=== PATIENT | female | born 1985 | race Caucasian/White ===

== ENCOUNTER 2019-07-12 11:00 | Outpatient (RCR) | payer OTHER, SELFPAY ==
--- NOTE | 2019-06-25 11:42 | OTOPEVAL ---
Thank you for referring this patient to [facility]. Please review, sign, date and return this plan of care SHAVONNE. I agree with and certify that the following plan of care is medically necessary. Referring Physician Date *OT Outpatient Evaluation Start: 06/25/19 11:30 Freq: Status: Active Protocol: Document 06/25/19 08:56 [facility] [place] (Rec: 06/25/19 11:40 [facility] [place] [id number]) Therapy Assessment Status Assessment Status Assessment Status Re-evaluation Outpatient Past Medical History Neurological History Hx Cerebrovascular Accident (CVA) Yes Cardiovascular History Hx Hypertension Yes Pain History History of Any Previous or Ongoing No Significant History Instance of Pain Pain Assessment Timing of Pain Assessment Timing of Pain Assessment Assessment Self Report Self Report Pain Level 0 Pain Score Pain Score 0: Self Report Upper Extremity Muscle Strength Testing General Upper Extremity Strength Gross Upper Extremity Strength Comments R UE strength: 4-/5 L UE strength: 4+/5 Complex ADL Assessment Grooming/Oral Care Able to Clean Teeth/Dentures with Minimum Assistance X 1 Suitable Items Eating/Feeding Ability to Bring Food to Mouth and Standby Assistance Swallow Eating (Feeding) Comment Patient's reports self feeding with verbal cues only except for difficult textures like pasta. Patient uses a divided plate. Lower Body Dressing Putting On/Removing Pants/Underwear Standby Assistance Including Fasteners Managing Footwear Including Socks, Shoes Independent , Tying Lower Body Dressing Comments Patient's reports that patient is able to don/doff pants, shirt, socks and shoes with verbal cues only. Safety Assessment Patient Safety Factors Affecting Safety Decreased Balance,Decreased Body Awareness OT Procedures OT Minutes Total Minutes Of Individual OT This 0 Session (Minutes) Query Text:The Provision Of OT Services By One Licensed OT (Or Licensed GAN, Under The Appropriate Direction Of A Licensed OT) To One Patient At A Time ( One-On-One Therapy). Total Minutes Of OT This Session (0-180 0 Minutes) Query Text:Total Minutes Must Equal Or Exceed The Sum Of The Minutes Documented Within This Assessment. Occupational Therapy Units Of Care ( 0 Medicare Standards) (1-8 Units) Query Text:Does Not Take Into Account Procedural Based Charges. Occupational Therapy Units Of Care (
--- NOTE | 2019-06-25 17:21 | PTOPEVAL ---
Thank you for referring this patient to [facility]. Please review, sign, date and return this plan of care SHAVONNE. I agree with and certify that the following plan of care is medically necessary. Referring Physician Date *PT Outpatient Evaluation Start: 06/25/19 10:28 Freq: Status: Active Protocol: Document 06/25/19 10:29 [facility] (Rec: 06/25/19 10:50 [facility] [id number]) Therapy Assessment Status Assessment Status Assessment Status Re-evaluation Outpatient Past Medical History Pain History History of Any Previous or Ongoing No Significant History Instance of Pain Pain Assessment Timing of Pain Assessment Timing of Pain Assessment Assessment Self Report Self Report Pain Level 0 Pain Score Pain Score 0: Self Report Lower Extremity Muscle Strength Testing Hip Strength Bilateral Hip Strength Comments pt. demonstrates 5/5 bilateral hip flexion, 4/5 bilateral hip extension, 5/5 knee extension, 5/5 knee flexion and 5/5 ankle dorsiflexion Balance Assessment Tinetti Balance Assessment Sitting Balance Steady, safe Ability to Arise Able, w/o using arms Attempts to Arise Arises on 1st attempt Immediate Standing Balance Steady w/o support Standing Balance Steady, wide stance Nudged Response Staggers, catches self Standing with Eyes Closed Steady Step Pattern Turning 360 Degrees Discontinuous steps Stability Turning 360 Degrees Unsteady, grabs/staggers Sitting Down Unsafe Initiation of Gait Hesitancy, mult. attempts Right Foot Step Length Does not pass stance ft. Right Foot Step Height Completely clears floor Left Foot Step Length Does not pass stance foot Left Foot Step Height Completely clears floor Step Symmetry Step length appears equal Step Continuity Stopping or discontinuity Path Description Marked deviation Trunk Description No sway but posturing Walking Stance Heels together Tinetti Composite Score (Balance + Gait) 15 (/28) Interpretation of Scores High risk for falls(< 19) Comments Pt. uses probing cane with ambulation. Gait Assessment Gait Assessment Weight Bearing Status - Left Full Weight Bearing Status - Right Full Maintains Weight Bearing Status Yes Ambulation Destination In Corridor Additional Ambulation Comments Pt. ambulates with use of a probing cane with continued frequen
--- NOTE | 2019-07-19 10:45 | OTOPEVAL ---
Thank you for referring this patient to [facility]. Please review, sign, date and return this plan of care SHAVONNE. I agree with and certify that the following plan of care is medically necessary. Referring Physician Date Admitting Provider: Attending Provider: demetri goodson Referring Provider: EmilOT Outpatient Evaluation Start: 06/25/19 11:30 Freq: Status: Active Protocol: Document 07/19/19 09:42 [facility] (Rec: 07/19/19 10:43 [facility] [place] [facility] [id number] Therapy Assessment Status Assessment Status Assessment Status Re-evaluation Outpatient Past Medical History Neurological History Hx Cerebrovascular Accident (CVA) Yes Cardiovascular History Hx Cardiac Disorders No Significant History Respiratory History Hx Respiratory Disorders No Significant History Gastrointestinal History Hx Gastrointestinal Disorders No Significant History Genitourinary History Hx Genitourinary Disorders No Significant History Musculoskeletal History Hx Musculoskeletal Disorders No Significant History Hematological History Hx Hematological Disorders No Significant History Endocrine History Hx Endocrine Disorders No Significant History HEENT History Hx HEENT Disorders No Significant History Integumentary History Hx Skin Disorders No Significant History Psychosocial History Hx Psychiatric Disorders No Significant History Pain History History of Any Previous or Ongoing No Significant History Instance of Pain Anesthesia History Hx Anesthesia Reactions No Significant History Pain Assessment Timing of Pain Assessment Timing of Pain Assessment Pre-Treatment Self Report Self Report Pain Level 0 Pain Score Pain Score 0: Self Report Upper Extremity Muscle Strength Testing General Upper Extremity Strength Reason Not Measured WNL/Left,WNL/Right Gross Upper Extremity Strength Comments 4+/5 Hand Toy Assembly Supervisor/Pinch Strength Assessment Hand Dominance Hand Dominance Right Hand Right Toy Assembly Supervisor Strength (lbs) 35 Lateral Pinch Strength (lbs) 7 Left Toy Assembly Supervisor Strength (lbs) 42 Lateral Pinch Strength (lbs) 9 OT Clinical Summary Clinical Summary Protocol: OTEVCODES Clinical Summary Patient is a 34 year old female who continues to receive skilled OT services and is making progress. She tolerates OT with good skill for participation and completion of tasks. Patient demonstrates increased R UE strength, specifically in the shoulder and is progressing in R
--- NOTE | 2019-07-26 08:48 | STOPEVAL ---
Thank you for referring this patient to [facility]. Please review, sign, date and return this plan of care SHAVONEN. I agree with and certify that the following plan of care is medically necessary. Referring Physician Date Admitting Provider: Attending Provider: demetri goodson Referring Provider: PEREZ Outpatient Evaluation Start: 06/25/19 13:47 Freq: Status: Active Protocol: Document 06/25/19 13:47 [facility] (Rec: 06/25/19 14:25 [facility] [id number]) Therapy Assessment Status Assessment Status Assessment Status Re-evaluation Outpatient Past Medical History Neurological History Hx Cerebrovascular Accident (CVA) Yes Cardiovascular History Hx Cardiac Disorders No Significant History Respiratory History Hx Respiratory Disorders No Significant History Gastrointestinal History Hx Gastrointestinal Disorders No Significant History Genitourinary History Hx Genitourinary Disorders No Significant History Musculoskeletal History Hx Musculoskeletal Disorders No Significant History Hematological History Hx Hematological Disorders No Significant History Endocrine History Hx Endocrine Disorders No Significant History HEENT History Hx HEENT Disorders No Significant History Integumentary History Hx Skin Disorders No Significant History Psychosocial History Hx Psychiatric Disorders No Significant History Pain History History of Any Previous or Ongoing No Significant History Instance of Pain Anesthesia History Hx Anesthesia Reactions No Significant History Evaluation Information Problem Diagnosis CVA Onset 02/13/19 Additional Evaluation Detail 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 She was seen for extensive therapy at [facility], [place], and [facility] until immediately prior to our outpatient evaluation on 05/24/19. Prior Level of Function Activity Level (Last 3 Months) Hand Dominance Right Activity of Daily Living Ability Independent Indoor/Home Mobility Independent Community Mobility Independent Stairs Ability Independent Functional Cognition (Planning, Shopping Independent , Taking Medications) Cooking Yes Cleaning Yes Laundry Yes Shopping Yes Driving Yes Medications Home Meds (Include: OTC, RX, Vitami
--- NOTE | 2019-09-02 09:20 | PCSTNOTE ---
The patient treatment was not able to be completed on [09/02/2019] due to child's illness. Will plan to continue treatment per plan of care.
--- NOTE | 2019-09-02 09:20 | PCSTNOTE ---
The patient treatment was not able to be completed on [08/26/18] due to [patient cancel]. Will plan to continue treatment per plan of care.
--- NOTE | 2019-09-09 10:34 | OTOPEVAL ---
Thank you for referring this patient to [facility]. Please review, sign, date and return this plan of care SHAVONNE. I agree with and certify that the following plan of care is medically necessary. Referring Physician Date Admitting Provider: Attending Provider: demetri goodson Referring Provider: EmilOT Outpatient Evaluation Start: 06/25/19 11:30 Freq: Status: Active Protocol: Document 09/09/19 09:47 [facility] (Rec: 09/09/19 10:34 [facility] [place] [id number]) Therapy Assessment Status Assessment Status Assessment Status Re-evaluation Outpatient Past Medical History Neurological History Hx Cerebrovascular Accident (CVA) Yes Cardiovascular History Hx Cardiac Disorders No Significant History Respiratory History Hx Respiratory Disorders No Significant History Gastrointestinal History Hx Gastrointestinal Disorders No Significant History Genitourinary History Hx Genitourinary Disorders No Significant History Musculoskeletal History Hx Musculoskeletal Disorders No Significant History Hematological History Hx Hematological Disorders No Significant History Endocrine History Hx Endocrine Disorders No Significant History HEENT History Hx HEENT Disorders No Significant History Integumentary History Hx Skin Disorders No Significant History Psychosocial History Hx Psychiatric Disorders No Significant History Pain History History of Any Previous or Ongoing No Significant History Instance of Pain Anesthesia History Hx Anesthesia Reactions No Significant History Evaluation Information Problem Subjective Information Patient transitions from ST to Query Text:As Reported By Patient/ OT. Her is present. Family He reports that she continues to struggle with self feeding , specifically with loading the utensil. He also reports that she has difficulty grasping objects with her right hand. He notes concerns with tremors/shakiness in the right hand. Pain Assessment Timing of Pain Assessment Timing of Pain Assessment Pre-Treatment Self Report Self Report Pain Level 0 Pain Score Pain Score 0: Self Report Upper Extremity Muscle Strength Testing General Upper Extremity Strength Reason Not Measured WNL/Left,WNL/Right Gross Upper Extremity Strength Comments 5/5 for R UE Hand Dredge Pumper/Pinch Strength Assessment Hand Right Dredge Pumper Strength (lbs) 45 Lateral Pinch Strength (lbs) 11 OT Clinical Summary Clinical Summary Protocol: OTEVCODES Clinical Summary Patient is a 34 year old
--- NOTE | 2019-09-13 09:30 | PCSTNOTE ---
The patient treatment was not able to be completed on 09/13/19 due to patient cancellation. Will plan to continue treatment per plan of care. Rescheduled for 10/16/19 at 9:30.
--- NOTE | 2019-09-13 09:52 | PCSTNOTE ---
The patient treatment was not able to be completed on 08/26/19 due to patient cancellation. Will plan to continue treatment per plan of care.
--- NOTE | 2019-09-13 10:44 | STOPEVAL ---
Thank you for referring this patient to [facility]. Please review, sign, date and return this plan of care SHAVONNE. I agree with and certify that the following plan of care is medically necessary. Referring Physician Date Admitting Provider: Attending Provider: demetri goodson Referring Provider: PEREZ Outpatient Evaluation Start: 06/25/19 13:47 Freq: Status: Active Protocol: Document 08/30/19 09:06 [facility] (Rec: 08/30/19 09:59 [facility] [id number]) Therapy Assessment Status Assessment Status Assessment Status Re-evaluation Outpatient Past Medical History Neurological History Hx Cerebrovascular Accident (CVA) Yes Cardiovascular History Hx Cardiac Disorders No Significant History Respiratory History Hx Respiratory Disorders No Significant History Gastrointestinal History Hx Gastrointestinal Disorders No Significant History Genitourinary History Hx Genitourinary Disorders No Significant History Musculoskeletal History Hx Musculoskeletal Disorders No Significant History Hematological History Hx Hematological Disorders No Significant History Endocrine History Hx Endocrine Disorders No Significant History HEENT History Hx HEENT Disorders No Significant History Integumentary History Hx Skin Disorders No Significant History Psychosocial History Hx Psychiatric Disorders No Significant History Pain History History of Any Previous or Ongoing No Significant History Instance of Pain Anesthesia History Hx Anesthesia Reactions No Significant History Pain Assessment Timing of Pain Assessment Timing of Pain Assessment Re-assessment Self Report Self Report Pain Level 0 Pain Score Pain Score 0: Self Report Bedside Swallow Evaluation General Reports Dysphagia No: Patient denies any signs of dysphagia. Cognitive Evaluation Orientation/Memory Assessment Immediate Memory 64 Query Text:% Accuracy Recent Memory 40 Query Text:% Accuracy Remote Memory 80 Query Text:% Accuracy Prospective Memory 100 Query Text:% Accuracy Temporal Orientation 40 Query Text:% Accuracy Spatial/Environmental Orientation 90 Query Text:% Accuracy Overall Orientation and Memory Moderate Deficits Orientation/Memory Comments Patient is unable to keep track of day, dates, and even where she is, most likely due to both CVA and lack of vision to assist with recall. Problem Solving Simple Problem Solving: Percent of 80 Accuracy 0-100 (%) Co
--- NOTE | 2019-09-15 09:56 | PCSTNOTE ---
The patient treatment was not able to be completed on 09/15/19 due to patient illness. Will plan to continue treatment per plan of care.
--- NOTE | 2019-09-15 10:01 | PCSTNOTE ---
July: Patient was scheduled 9 times and came for therapy 4 times. Present: 07/26, 08/02, 08/05,08/16 Missed: 07/29, 08/09, 08/12, 08/19, 08/23
--- NOTE | 2019-09-16 09:12 | PCSTNOTE ---
The patient treatment was not able to be completed on 09/16/19 due to car trouble and unable to come into [place] today. Will plan to continue treatment per plan of care.
--- NOTE | 2019-09-20 09:02 | PCSTNOTE ---
The patient treatment was not able to be completed on 09/20/19 at regularly scheduled 9 am appointment. This therapist was not given a reason for cancellation of morning therapies, however patient did reschedule with OT at 1 pm for today. This therapist was notified but unable at this time to guarantee an afternoon appointment due to being scheduled previously at another location for the afternoon. If this therapist is able, I will schedule an afternoon appointment today with patient; if not, we will reschedule for another time to complete plan of care.
--- NOTE | 2019-09-20 13:20 | PCSTNOTE ---
The patient treatment was not able to be completed on 09/20/19. Patient was scheduled in the morning and they cancelled. A therapist rescheduled for PT/OT this afternoon and this therapist remained in the building to attempt to see patient after OT. They did not show for the afternoon session. Therapist will allow one more attempt on at 9 am and then discharge whether they show or not due to consistent cancellations during the month of August. She has been seen only three times out of a possible 9 scheduled appointments.
--- NOTE | 2019-09-23 09:23 | PCSTNOTE ---
The patient treatment was not able to be completed on 09/23/19. called to cancel due to car issues. Patient is being discharged at this time as she has only attended 3/10 possible treatment sessions due to various issues including car trouble, illness and weather. See discharge summary.
--- NOTE | 2019-09-23 09:25 | PCSTNOTE ---
Addendum entered by Farzaneh Hall, BASIM 09/23/19 09:53: This is not patient's official discharge summary however therapist was unable to delete it. See next D/C summary for official copy. Original Note: Admitting Provider: Attending Provider: demetri goodson Patient:Maureen Lopez Date of :1985 This patient was evaluated on May 24, 2019 and attended regularly twice weekly throughout May and June; during the month of July, she was seen for 4/7 possible treatment sessions and during the month of August she attended 3/10 treatment sessions; she has not attended treatment sessions since since 09/09/19 due to various illnesses in the family, car issues, and weather issues. Patient will be discharged from structured therapy at this time due to being unable to attend regularly. While attending regularly, the patient made significant progress in several areas addressed however she exhibited only minimal progress in her ability to recall new information. She was given a recording device and was instructed to set it up with new information daily (day, date, today's activities and locations, etc. During our last two sessions, the patient was asked to listen to the information, visualize it, repeat it to herself (or aloud) and then recall it. During those sessions, she exhibited minimal ability to recall the new information and therefore exhibiting a plateau in recovery. At time of discharge, current goals have been only partially achieved. She was discharged with access to this device, understands purpose and how to record the new information. Therapist called and left message for that if he has any questions or concerns, he may contact this POOL MANAGER at [facility], and that a re-evaluation may be performed after one month in order to allow them time to deal with the issues that are preventing patient from attending regularly. Thank you for referring this patient to [facility]. Please review, sign, date and return this discharge summary SHAVONEN. I have been updated about the patient's current status and I agree with discharge from the above service at this time. Referring Physician Date
--- NOTE | 2019-09-23 09:43 | PCSTNOTE ---
Admitting Provider: Attending Provider: Natividad Lord MD Patient:Maureen Lopez Date of :1985 This patient was evaluated on May 24, 2019 and attended Speech Therapy sessions regularly twice weekly throughout May and June, with therapy addressing pragmatic skills, memory skills, and speech intelligibility, along with occasional mastication/swallowing therapy. She made significant progress in all areas except for memory/recall of new information, which remained difficult. The patient attended only 4 out of 9 possible treatment sessions in July, and then only 3 out of a possible 10 treatment sessions in August of 2019 due to various issues including illnesses in the patient/family, car issues, and inclement weather issues. At the beginning of August, therapist provided patient with a push-button recording device (large enough for patient to find easily without vision) and the was instructed to record daily, new information including day, date, activities of the day and upcoming appointments. The patient was well able to find the device on the table near her however she was only inconsistently able to recall the new information after hearing it and with the cues to visualize the information, repeat it silently or aloud, or use associations to recall the information. Her last date of attendance was 09/09/19 and she was given 5 more possible sessions through the rest of August and was unable to attend any of them. She is being discharged due to lack of attendance and inconsistent to minimal progress in final goals related to the use of recalling information provided on the recorder. Therapist instructed the that patient may be re-evaluated after one month if and when the attendance issues are resolved but that he may contact us any time with questions or concerns. [facility]. Please review, sign, date and return this discharge summary SHAVONNE. I have been updated about the patient's current status and I agree with discharge from the above service at this time. Referring Physician Date
--- NOTE | 2019-10-22 10:43 | PCOTNOTE ---
Patient is discharged from skilled OT services as of 09/22/19. Multiple attempts to schedule patient for remaining 2 OT sessions however patient cancelled and did not show to multiple appointments. See last treatment note for progress towards remaining goals. MS
== END 2019-09-22 23:59 | disposition home or self-care (01) ==
LOC: CHSPT 11:00
DX: I69.391 Dysphagia following cerebral infarction (principal); H53.8 Other visual disturbances; I69.398 Other sequelae of cerebral infarction; R13.10 Dysphagia, unspecified
CPT/HCPCS: 97110; 97112; 97116; 97530; 97535

== ENCOUNTER 2020-11-15 21:05 | Emergency (ER) | payer OTHER, SELFPAY ==
[2020-11-15 21:10] VITALS: BP 105/77; PULSE 83; RESP 20; TEMP 36.7; O2SAT 99
--- NOTE | 2020-11-15 21:24 | ECG_ITS ---
Measurements Intervals [place] Rate: 82 P: 36 MA: 158 QRS: 5 QRSD: 93 T: 23 QT: 401 QTc: 469 Interpretive Statements SINUS RHYTHM EARLY PRECORDIAL R/S TRANSITION VOLTAGE CRITERIA FOR LVH MINIMAL Q WAVES- HIGH LATERAL LEADS BORDERLINE ECG Electronically Signed On 11-16-2020 7:36:57 CDT by Edvin Mandel D.O.
--- NOTE | 2020-11-15 21:33 | ED.GENADULT ---
HPI - General Adult General Chief complaint: Chest Pain Stated complaint: chest pain, trouble breathing Source: patient Mode of arrival: ambulatory Limitations: no limitations History of Present Illness HPI narrative: Maureen is a 35F with a PMH of obesity, HTN, hypothyroidism, carpal tunnel, anxiety/depression and CVA w/o resulting facial droop, blindness and memory issues that presented to the ED with a constant sharp chest pain after eating a brat before coming in. It is not worse with exertion. It did not get better with diazepam, omeprazole or propranolol. No N/V or dizziness. No SOB currently. Related Data Home Medications Medication Instructions Recorded Confirmed atorvastatin 40 mg PO DAILY 11/15/20 11/15/20 diazepam 10 mg PO PRN PRN 11/15/20 11/15/20 ergocalciferol (vitamin D2) 1,250 mcg PO DAILY 11/15/20 11/15/20 [Vitamin D2] escitalopram oxalate 10 mg PO DAILY 11/15/20 11/15/20 gabapentin 300 mg PO DAILY 11/15/20 11/15/20 levothyroxine 88 mcg PO DAILY 11/15/20 11/15/20 omeprazole 20 mg PO DAILY 11/15/20 11/15/20 propranolol 40 mg PO BID 11/15/20 11/15/20 sitagliptin [Januvia] 100 mg PO DAILY 11/15/20 11/15/20 trazodone 150 mg PO DAILY 11/15/20 11/15/20 Allergies Allergy/AdvReac Type Severity Reaction Status Date / Time promethazine Allergy Mild Unverified 09/25/14 09:02 Review of Systems Constitutional: Constitutional: Denies body ache(s), Denies chills and Denies fever(s) Eyes: Eyes: Reports no additional eye complaints ENT: Reports system reviewed and no additional complaints, except as documented Cardiovascular: Cardiovascular: Denies chest pain with activity, Denies irregular heart rhythm and Denies palpitations Gastrointestinal: Gastrointestinal: Reports no additional gastrointestinal complaints Musculoskeletal: Musculoskeletal: Reports no additional musculoskeletal complaints Integumentary/Breasts: Skin/Breast: Reports system reviewed and no additional complaints, except as docu Neurologic: Reports system reviewed and no additional complaints, except as documented Psychiatric: Psychiatric: Reports no additional psychiatric complaints Endocrine: Endocrine: Reports no additional endocrine complaints and Denies palpitations Hematologic/Lymphatic: Hematologic/Lymphatic: Reports no additional hematologic/lymphatic complaints Allergic/Immunologic: Allergic/Immunologic: Reports no additional allergic/immunologic complaints Exam Const: General: cooperative, comfortable, no acute distress, well developed, alert and awake HENMT: Head: normal to inspection, normocephalic and atraumatic Ears: hearing grossly normal bilaterally and external ears normal General nose exam: Normal external nose present Other: right sided facial droop. Eyes: General: appearance normal, both eyes and all related structures Periorbital: periorbital findings normal Sclera: sclerae normal Pupils: Equal, round and reactive pupils present Resp: Effort & Inspection: normal respiratory effort, able to speak in complete sentences and no respiratory distress Auscultation: clear to auscultation bilaterally Cardio: Jugular venous distension: no JVD Rate: regular rate Rhythm: regular rhythm GI: Inspection: normal to inspection GI Palp: Yes Soft to palpation Auscultation: normal bowel sounds Skin: General skin exam: normal color and no rashes or lesions noted Other: sweaty Neuro: General: oriented to person, oriented to place and oriented to time Extrem: General: normal to inspection Course Course Emergency Course: Maureen was evaluated. Ordered labs and EKG as well as an EKG EKG showed NSR with a rate of 82, normal axis, and no ST elevation/depression Labs were largely unremarkable. Her chest pain completely resolved and she returned to her baseline. As her pain completely resolved and her BNP and Trop were normal she was discharged with a script for omeprazole. Vital Signs Vital signs: Vital Signs Temperat
[2020-11-15 21:51] LABS: Basophils Absolute Auto 0.01 K/mm3 (0.00-0.10); Basophils Percent Auto 0.2 % (0.0-1.0); Eosinophils Absolute Auto 0.01 K/mm3 (0.02-0.50); Eosinophils Percent Auto 0.2 % (1.0-6.0); Hematocrit 36.3 % (35.0-49.0); Hemoglobin 11.6 g/dL (12.0-15.0); Immature Granulocyte Absolute 0.01 K/mm3 (0.00-0.00); Immature Granulocyte Percent A 0.2 % (0.0-0.0); Immature Platelet Fraction Pct 1.6 % (1.0-7.0); Lymphocytes Absolute Auto 2.07 K/mm3 (1.10-4.50); Lymphocytes Percent Auto 38.3 % (18.0-42.0); Mean Corpuscular Hemoglobin 27.5 pg (27.0-31.0); Mean Platelet Volume 9.6 fl (9.2-11.8); Monocytes Absolute Auto 0.33 K/mm3 (0.10-0.90); Monocytes Percent Auto 6.1 % (2.0-11.0); Platelet Count Result 230 K/mm3 (150-420); Red Blood Count 4.22 M/mm3 (4.20-5.40); Red Cell Distribution Width 13.6 % (11.6-14.4); White Blood Count 5.4 K/mm3 (4.8-10.8)
[2020-11-15 21:57] VITALS: PULSE 83
[2020-11-15 21:58] VITALS: BP 104/70; PULSE 84; RESP 20; O2SAT 97
[2020-11-15 22:03] LABS: Prothrombin Time 10.9 Seconds (9.50-12.10)
[2020-11-15 22:13] LABS: Alanine Aminotransferase 22 U/L (14-59); Albumin Level 2.9 g/dL (3.4-5.0); Alkaline Phosphatase 165 U/L (46-116); Anion Gap 8 mmol/L (8-16); Aspartate Amino Transferase 17 U/L (15-37); Bilirubin,Total 0.3 mg/dL (0.00-1.00); Blood Urea Nitrogen 9 mg/dL (7-18); Calcium 8.7 mg/dL (8.5-10.1); Carbon Dioxide 25 mmol/L (21-32); Chloride 99 mmol/L (98-108); Estimated CRCL calculation 121 ml/min; Estimated Glomerular Filt Rate > 60; Glucose 97 mg/dL (70-99); Osmolality Calculated 272 mOsm/kg (285-295); Potassium 3.9 mmol/L (3.5-5.1); Sodium 132 mmol/L (136-145); Total Protein 7.6 g/dL (6.4-8.2)
[2020-11-15 22:17] LABS: BNP 37.5 pg/mL (0-100)
[2020-11-15 22:18] LABS: Troponin I < 4.0 ng/L (0.00-60.4)
[2020-11-15] MEDS: ACETAMINOPHEN 325 MG TABLET 650 MG PO (22:28)
[2020-11-15] MEDS: MAG HYDROX/ALUMINUM HYD/SIMETH 30 ML, PHENobarb/HYOSCY/ATROPINE/SCOP 32.4 MG, LIDOCAINE... PO (22:28)
[2020-11-15 23:00] VITALS: BP 101/89; PULSE 82; RESP 20; TEMP 36.6; O2SAT 95
== END 2020-11-15 23:10 | disposition home or self-care (01) ==
PROVIDERS: Emergency Provider Family Medicine; PCP Family Medicine
DX: R07.9 Chest pain, unspecified (principal); K21.9 Gastro-esophageal reflux disease without esophagitis
CPT/HCPCS: 36415; 80053; 83880; 84484; 85025; 85055; 85610; 93005; 99282; 99284; A9270

== ENCOUNTER 2021-07-11 11:08 | Outpatient (CLI) | payer OTHER, SELFPAY ==
[2021-07-11 11:38] LABS: Hematocrit 37.1 % (37.0-47.0); Mean Corpuscular HGB Conc 32.3 g/dl (32-36); Mean Corpuscular Hemoglobin 26.4 pg (26-34); Mean Corpuscular Volume 81.7 fl (80-100); Mean Platelet Volume 9.4 fl (7.4-10.4); Platelet Count Result 215 k/mm3 (150-375); Red Blood Count 4.54 M/mm3 (4.2-5.4); Red Cell Distribution Width 15.6 % (11.5-14.5); White Blood Count 6.4 K/mm3 (4.5-10.0)
[2021-07-11 11:56] LABS: Anion Gap 10 mmol/L (8-16); Blood Urea Nitrogen 15 mg/dL (7-17); Calcium 9.5 mg/dL (8.4-10.2); Carbon Dioxide 28 mmol/L (22-30); Chloride 101 mmol/L (98-107); Estimated Glomerular Filt Rate > 60; Glucose 102 mg/dL (65-110); Potassium 4.4 mmol/L (3.4-5.0); Sodium 139 mmol/L (137-145)
== END 2021-07-11 11:09 | disposition home or self-care (01) ==
PROVIDERS: Anesthesiology; PCP Family Medicine; Visit Provider Student in an Organized Health Care Education/Training Program
DX: E11.9 Type 2 diabetes mellitus without complications (principal); N92.0 Excessive and frequent menstruation with regular cycle; Z01.818 Encounter for other preprocedural examination
CPT/HCPCS: 36415; 80048; 85027

== ENCOUNTER → 2021-07-14 00:08 | Outpatient (CLI) | payer OTHER, SELFPAY ==
[2021-07-14 18:14] LABS: SARS-CoV-2 RNA PCR Negative
== END ==
PROVIDERS: PCP Family Medicine; Visit Provider Student in an Organized Health Care Education/Training Program
DX: Z01.812 Encounter for preprocedural laboratory examination (principal); Z20.822 Contact with and (suspected) exposure to COVID-19
CPT/HCPCS: C9803; U0003; U0005

== ENCOUNTER 2021-07-18 01:14 | Day surgery (SDC) | payer OTHER, SELFPAY ==
[2021-07-10 13:25] VITALS: BMI 42.6
--- NOTE | 2021-07-10 13:32 | PC.NURSE ---
Report to the Outpatient Waiting Room, entrance under the green pavilion located off [facility], at time __1130_ on date _07-18-21_. OR Time: ___0_. - You and your visitor will be asked a series of questions to screen for COVID 19 for your protection. - A mask is required within the hospital. - Only one visitor is allowed at this time. Patient visitors will be guided where to wait when not with patient. Preoperative COVID Testing Requirements: No COVID Test needed if: (proof is required; if not received patient will have Rapid Test prior to entry) - Patient has received COVID Vaccine at least 14 days prior to procedure date or - Patient has positive COVID test result within last 90 days of surgery date. Covid test 07-14-21 at 915am. COVID Test needed if above criteria is not met If not COVID vaccinated a COVID test must be conducted within 72 hours of surgery and patient is asked to isolate self from time of testing until procedure. You will go to the [facility] for your COVID testing. The [employer] site is located at the corner of [address] from [facility]. You will only be called if COVID results are positive and your surgeon may reschedule your elective surgery date. Patients may have clear liquids (water, carbonated beverages, clear teas, apple juice) until 3 hours prior to surgery with a maximum of 20 ounces. - No food from midnight until time of surgery - Infants may have breast milk until 4 hours before surgery, formula 6 hours prior to surgery. - Children will be allowed to drink immediately following surgery. If applicable, please bring a bottle or sippy cup to assist with drinking. Juice, water, soda, and popsicles are readily available. For infants on formula, please bring formula the day of surgery. Pacifiers are allowed. Take the following medications with a SIP of water the morning of surgery: ____Propanolol and Levothyroxine Medications to discontinue per physician Stopped aspirin [id number] Date to take last dose No diabetic medicines morning of surgery. Please no make-up, nail uzbek, hairspray, perfume, deodorant, or body powder the day of surgery. No jewelry (including any body piercings) or valuables the day of surgery, leave them at home. Please take a shower or bath the night before, or the morning of, surgery with an antibacterial soap. Wear comfortable, loose fitting clothing. Children are encouraged to wear pajamas. - Jewelry must be removed prior to entering the operating room. Rings and piercings that are not removed may be cut off. - The hospital will not accept responsibility for valuables. - Please leave all valuables, including medications, at home the day of surgery. If you are going home after surgery, a licensed milk pickup driver must drive you home. - NO public transportation without another adult. - We recommend that an adult stay with you for 24 hours following discharge. - We also recommend that you do not drive, make important decision, drink alcoholic beverages, or take any drugs that were not prescribed by your health care provider for at least 24 hours after your discharge time. For Pediatric surgeries, we recommend two adults accompany the child home (only one inside the building at this time). Follow any additional instructions given to you from your surgeon. Telephone instructions given to _hair Garcia and SAMANTHA,_and asked if any additional questions and then verbalized understanding. Patient advised to call surgeon office or pre surgery nurse liaison [phone] if any additional questions.
--- NOTE | 2021-07-17 15:42 | PM.IMHP ---
H&P: HPI History of Present Illness Date/Time: 07/17/21 15:42 Chief Complaint: desires permanent sterilization Narrative: 35 yo who presents for laparoscopic bilateral salpingectomy for permanent sterilization and hysteroscopy D&C with endometrial ablation for AUB. Pt has 3 living children and does not desire any more fertility. Pt has tried an IUD before with bothersome breakthrough bleeding. Pt also reports heavy irregular periods. Pt's medical history is complicated by history of a stroke, blindness, hypothyroidism, diabetes and depression. Review of Systems Cardiovascular: Cardiovascular: Denies chest pain, Denies leg edema, Denies palpitations, Denies dyspnea and Denies dyspnea on exertion Respiratory: Respiratory: Denies cough, Denies dyspnea and Denies dyspnea on exertion Gastrointestinal: Gastrointestinal: Denies abdominal pain, Denies constipation, Denies diarrhea, Denies nausea and Denies vomiting Genitourinary: Genitourinary: Denies hematuria, Denies urinary frequency, Denies dysuria, Denies pelvic pain, Denies urinary incontinence and Denies vaginal discharge Neurologic: Reports system reviewed and no additional complaints, except as documented Psychiatric: Psychiatric: Reports no additional psychiatric complaints Endocrine: Endocrine: Denies palpitations PMFSH Social History Social History Smoking status: Never smoker Spiritual care concerns: No Meds Home Medications and Allergies Home Medications Medication Instructions Recorded Confirmed Type atorvastatin 40 mg PO DAILY 11/15/20 07/10/21 History diazepam 10 mg PO PRN PRN 11/15/20 07/10/21 History ergocalciferol (vitamin D2) 1,250 mcg PO DAILY 11/15/20 07/10/21 History [Vitamin D2] escitalopram oxalate 15 mg PO HS 11/15/20 07/10/21 History levothyroxine 88 mcg PO DAILY 11/15/20 07/10/21 History omeprazole 40 mg PO DAILY #30 cap 11/15/20 07/10/21 Rx propranolol 20 mg PO BID 11/15/20 07/10/21 History sitagliptin [Januvia] 100 mg PO DAILY 11/15/20 07/10/21 History trazodone 150 mg PO DAILY 11/15/20 07/10/21 History aspirin 325 mg PO DAILY 07/10/21 07/10/21 History glimepiride 2 mg PO DAILY 07/10/21 07/10/21 History pramipexole 0.125 mg PO HS 07/10/21 07/10/21 History Allergies Allergy/AdvReac Type Severity Reaction Status Date / Time promethazine Allergy Mild Unknown Unverified 07/10/21 13:20 quetiapine [From Seroquel] AdvReac Severe Agitated Verified 07/10/21 13:20 Exam Const: General: no acute distress Eyes: EOM: EOMs intact bilaterally Neck: Neck: supple Thyroid: thyroid normal Chest: Breast/axilla inspection: normal inspection of the breasts Breast/axilla palpation: normal palpation of the breasts, normal palpation of the axillae and no axillary lymphadenopathy Resp: Effort & Inspection: normal respiratory effort Auscultation: clear to auscultation bilaterally Cardio: Rate: regular rate Rhythm: regular rhythm GI: Inspection: non-distended GI Palp: Yes Soft to palpation, No Tenderness to palpation present (GI) and No Guarding due to palpation present (GI) Auscultation: normal bowel sounds : General: No bladder normal to palpation External Female Exam: normal external appearance Speculum Exam - Vagina: normal vaginal discharge and No vaginal bleeding Speculum Exam - Cervix: nontender Bimanual exam- vagina & uterus: No bladder normal to palpation and No Cervical tenderness present OB/external & speculum: No vaginal bleeding Skin: General skin exam: normal color and no rashes or lesions noted Neuro: Cognition (Neuro): normal cognition Speech: normal speech Extrem: General: normal to inspection and no edema Psych: Mental Status: mental status grossly normal Affect: normal affect Assessment and Plan Assessment and plan (1) Encounter for sterilization: Code(s): Z30.2 - Encounter for sterilization Status: Acute Assessment and Plan: Pt
[2021-07-18] VITALS (8 sets, daily range): BP systolic 115–143; BP diastolic 71–90; PULSE 83–99; RESP 16–18; TEMP 36.2–36.4; O2SAT 98–100
--- NOTE | 2021-07-18 07:59 | WPDHPUPDATE1 ---
History and Physical Update Update Date/Time: 07/18/21 07:59 History and Physical has been reviewed, including an updated exam of the patient. There are NO changes in the patient's condition. Risks, benefits, and alternatives have been discussed and questions answered. Patient agrees to proceed with procedure.
[2021-07-18] MEDS: LACTATED RINGERS 1,000 ML 30 ML IV CONT (12:27)
[2021-07-18] MEDS: KETOROLAC 15 MG/ML VIAL (*BKC) IV PUSH (12:29)
[2021-07-18] MEDS: ACETAMINOPHEN 500 MG TABLET 1000 MG PO (12:29)
[2021-07-18 12:30] LABS: Glucose Point of Care 121 mg/dl (65-105)
--- NOTE | 2021-07-18 12:42 | WPDANESEPPF ---
Anes - Initial Pre Proc Eval Procedure: Operation Date: 07/18/21 13:30 Proposed Procedures p Laparoscopic Bilateral Salpingectomy - Gabino Ching MD s Hysteroscopy Dilation and Curettage Endometrial Ablation with Twyla - Gabino Ching MD Date/Time: 07/18/21 12:42 Surgeon: Gabino Ching MD Pre Op Diagnosis: desires sterilization , heavy bleeding Patient Data Age: 36 Gender: F Height: 1.73 m Weight: 121.8 kg Allergies Allergy/AdvReac Type Severity Reaction Status Date / Time promethazine Allergy Mild Anxiety Verified 07/18/21 11:57 quetiapine [From Seroquel] AdvReac Severe Agitated Verified 07/18/21 11:57 Home Medications Medication Instructions Recorded Confirmed Type atorvastatin 40 mg PO DAILY 11/15/20 07/18/21 History diazepam 10 mg PO PRN PRN 11/15/20 07/18/21 History ergocalciferol (vitamin D2) 1,250 mcg PO DAILY 11/15/20 07/18/21 History [Vitamin D2] escitalopram oxalate 15 mg PO HS 11/15/20 07/18/21 History levothyroxine 88 mcg PO DAILY 11/15/20 07/18/21 History omeprazole 40 mg PO DAILY #30 cap 11/15/20 07/18/21 Rx propranolol 20 mg PO BID 11/15/20 07/18/21 History sitagliptin [Januvia] 100 mg PO DAILY 11/15/20 07/18/21 History trazodone 150 mg PO DAILY 11/15/20 07/18/21 History aspirin 325 mg PO DAILY 07/10/21 07/10/21 History glimepiride 2 mg PO DAILY 07/10/21 07/18/21 History pramipexole 0.125 mg PO HS 07/10/21 07/18/21 History Laboratory Tests 07/18/21 07/18/21 12:22 12:25 POC Capillary Glucose 121 mg/dl H mg/dl (65-105) Serum HCG, Qual Pending Patient hx anesthesia problems: none Family hx anesthesia problems: post op nausea/vomiting Results Review: All pre-operative results and documents have been reviewed as part of the pre-operative evaluation. [facility] Past Medical History Medical History CVA (cerebral vascular accident) Diabetes Hypertension Hypothyroid Social History Social History Smoking status: Never smoker Living arrangements: with family Spiritual care concerns: No Anes - Eval Final PreProcedure Day of Procedure 07/18/21 12:42 Patient weight: morbidly obese Heart: regular rate and rhythm Lungs: decreased breath sounds Airway: Mallampati scale class III Neurological: hemiparesis and other Last oral intake: >/= 8 hours ASA classification: III Emergent: no Anesthetic plan: proceed Anesthesia type and monitoring: general ETT and standard monitoring Results Review: All pre-operative results and documents have been reviewed as part of the pre-operative evaluation. Informed Consent: The patient's anesthetic plan and its attendant risks and benefits were discussed with the patient/family/POA. Questions were solicited and answers provided to the satisfaction of the patient/family/POA.
[2021-07-18 13:44] LABS: Serum Qual hCG Negative
[2021-07-18 13:45] LABS: SPREG INTERNAL CONTROL Positive
[2021-07-18] MEDS: LIDO 1%/EPINEPHRINE 1:100,000 50 ML VIAL 15 ML INFILTRATE (14:15)
--- NOTE | 2021-07-18 14:51 | W.PM.PROC2 ---
Procedure Note - Detailed Date of Procedure 07/18/21 Pre-op Diagnosis desires sterilization , abnormal uterine bleeding Post-op Diagnosis same Procedure Performed laparoscopic bilateral salpingectomy hysteroscopy, dilation and curettage, endometrial ablation Surgeon Gabino Ching MD Anesthesia general Indications desires permanent sterilization abnormal uterine bleeding Findings normal appearing uterus, bilateral fallopian tubes and ovaries normal appearing endometrium globally Description of Procedure the patient was taken to the operating room where general endotracheal anesthesia was undertaken and found to be adequate. She was then prepped and draped in the dorsal lithotomy position. A pre-operative team brief and time-out were completed. A catheter was placed to drain the bladder. Speculum was placed in the vagina and the cervix was identified. An acorn uterine manipulator was placed as well as single-tooth tenaculum on the anterior lip of the cervix. Attention was then turned to the abdomen which was anesthetized umbilical he with injected anesthetic. A 5 mm skin incision was made in the umbilicus. A 5 mm optical trocar was then placed with direct visualization of the abdominal layers during placement. The trocar stylette was removed and the camera was used to verify intra-abdominal placement.live was used to verify intra-abdominal placement. CO2 insufflation was then connected and The abdominal cavity was insufflated. General abdominal and pelvic survey was performed. Two other laparoscopic port site incisions were made approximately 2 cm superior and medial of the ASIS bilaterally. Both fallopian tubes were inspected and identified out to the level of the fimbriae. The Fimbriated end of the left fallopian tube was then grasped with a blunt grasper. the fallopian tube was then transected along its inferior aspect along the mesosalpinx with the LigaSure device. Transection was carried out to the fallopian tubes insertion into the uterine fundus. The fallopian tube was then completely transected from the uterus using the LigaSure device. This procedure was repeated for the right fallopian tube. Good hemostasis was maintained throughout. The transected fgh the 5 mm laparoscopic portrom the abdomen through the 5 mm laparoscopic port. The surgical field was inspected and again could hemostasis was noted. At this point the laparoscopic portion of the procedure was ended. The abdomen was desufflated. All laparoscopic ports were removed from the abdomen. Abdominal incisions were closed with 4-0 Vicryl in a subcuticular fashion.. Attention was then turned to the pelvis. The acorn manipulator was removed. The cervix was dilated to allow passage of the hysteroscope. The hysteroscope was introduced into the uterine cavity without difficulty. A global survey of the endometrial cavity was performed. A uterine sound was then used to measure the endometrial cavity. The length was found to be 5.5 cm. Sharp curettage was then performed to obtain endometrial sampling prior to ablation. The Twyla device was then set to 5.5 cm. The Twyla device was then introduced into the uterine cavity. The fan was slowly deployed with gently movements to ensure a snug fit within the cavity. The cervical balloon was then insufllated to create a cervical seal. The Twyla device then performed a cavity integrity assessment without concern. The Twyla device was then activated and endometrial ablation was performed for a total of 120 section. The cervical balloon was then desufflated and the Twyla device was removed. The hysteroscope was reintroduced and a global survey showed good burn throughout the endometrium and the fundus. The tenaculum was then removed. The cervix was inspected and good hemostasis was obtained. Sponge, lap and needle counts were correct. The patient tolerated the procedure well. The patient was taken out of dorsal li
--- NOTE | 2021-07-18 15:13 | SUR.PHASEI ---
Simple mask removed at 1512.
[2021-07-18 15:14] LABS: Glucose Point of Care 93 mg/dl (65-105)
--- NOTE | 2021-07-18 15:52 | SUR.PHASEI ---
RN called Dr. Ching's cell phone to have him sign prescription for this patient.
== END 2021-07-18 16:26 | disposition home or self-care (01) ==
PROVIDERS: PCP Family Medicine; Visit Provider Student in an Organized Health Care Education/Training Program
PROC: (CPT 49320; principal; 2021-07-18 13:30)
PROC: 0U5B8ZZ Destruction of Endometrium, Via Natural or Artificial Opening Endoscopic (ICD-10-PCS; CPT 58563; 2021-07-18 13:30)
DX: Z30.2 Encounter for sterilization (principal); N93.9 Abnormal uterine and vaginal bleeding, unspecified; N70.11 Chronic salpingitis; N73.6 Female pelvic peritoneal adhesions (postinfective); D28.7 Benign neoplasm of other specified female genital organs; E03.9 Hypothyroidism, unspecified; Z79.82 Long term (current) use of aspirin; E11.9 Type 2 diabetes mellitus without complications; I10 Essential (primary) hypertension; Z86.73 Personal history of transient ischemic attack (TIA), and cerebral infarction without residual deficits; E66.9 Obesity, unspecified; Z68.41 Body mass index [BMI] 40.0-44.9, adult
CPT/HCPCS: 58661; 58563; 36415; 82948; 84703; 88302; 88305; A9270; J1100; J1885; J2250; J2370; J2704; J2710; J3010; J7030; J7120